=== PATIENT | female | born 1935 | race Caucasian/White ===

== ENCOUNTER → 2023-06-28 14:55 | Outpatient (REF) | payer OTHER, SELFPAY | LOC: RCS 14:55 | PROVIDERS: ATTENDING PHYSICIAN Internal Medicine Cardiovascular Disease; FAMILY PHYSICIAN Family Medicine | DX: R00.2 Palpitations (principal) | CPT/HCPCS: 93306 ==

== ENCOUNTER → 2023-07-18 12:00 | Outpatient (REF) | payer OTHER, SELFPAY ==
[2023-07-18 13:13] LABS: % Basophils 0.3 % (0-2); % Eosinophils 1.6 % (0-6); % Immature Granulocytes 0.5 % (0-0.5); % Lymphocytes 22.1 % (20.5-51.1); % Monocytes 6.7 % (1.7-9.3); % Neutrophils 68.8 % (42.2-75.2); Absolute Eosinophils 0.1 10^3/uL (0-0.7); Absolute Lymphocytes 1.4 10^3/uL (1.2-3.4); Absolute Monocytes 0.4 10^3/uL (0.1-0.6); Absolute Neutrophils 4.3 10^3/uL (1.4-6.5); Hematocrit 31.8 % (37.0-47.0); Mean Corp Hgb Conc. 34.6 g/dL (33.0-37.0); Mean Corpuscular Hgb 31.3 pg (27.0-31.0); Mean Corpuscular Volume 90.6 fL (81.0-99.0); Mean Platelet Volume 9.6 fL (7.4-10.4); Nucleated Red Blood Cells % 0 %; Platelet Count 215 10^3/uL (130-400); Red Blood Cell Count 3.51 10^6/uL (4.20-5.40); Red Cell Dist. Width 13.5 % (11.5-14.5); White Blood Cell Count 6.3 10^3/uL (4.8-10.8)
[2023-07-18 13:53] LABS: ALT (SGPT) 14 U/L (0-35); AST (SGOT) 19 U/L (14-36); Alkaline Phosphatase 86 U/L (38-126); Blood Urea Nitrogen 22 mg/dl (7-17); Calcium 9.5 mg/dl (8.4-10.2); Carbon Dioxide 27 mmol/L (22-30); Chloride 104 mmol/L (98-107); Glucose 88 mg/dl (70-99); Potassium 4.2 mmol/L (3.5-5.1); Sodium 139 mmol/L (135-145); Total Bilirubin 0.4 mg/dl (0.2-1.3); Total Protein 6.4 g/dl (6.3-8.2); eGFR > 60.00
[2023-07-20 15:16] LABS: CA 27-29 32.2 U/mL (<=39.0)
== END ==
LOC: RAD 12:00
PROVIDERS: ATTENDING PHYSICIAN Internal Medicine Hematology & Oncology; FAMILY PHYSICIAN Family Medicine; REFERRING PHYSICIAN Nurse Practitioner Adult Health
DX: C78.01 Secondary malignant neoplasm of right lung (principal); C78.1 Secondary malignant neoplasm of mediastinum; C50.111 Malignant neoplasm of central portion of right female breast
CPT/HCPCS: 36415; 71260; 80053; 85025; 86300; Q9967

== ENCOUNTER 2023-09-13 10:50 | Inpatient (IN) | payer OTHER, SELFPAY ==
[2023-09-12 20:16] VITALS: BP 184/56; BMI 25.6
--- NOTE | 2023-09-12 20:26 | ED.GENMED ---
History of Present Illness
General
Chief Complaint: Fall
Source: patient
Exam Limitations: none
Time Seen by Provider: 09/12/23 20:11
History of Present Illness
History of Present Illness:
This is a 87 year old Female that comes in by ambulance with c/o fall. States that she [place] when she tripped and fell. States that she landed on her left hip. Denies hitting her head or any LOC. Denies
any Thinners. States that she was a little lightheaded after the fall. Denies any fever, chills, chest pain, SOB, abd pain, nausea, vomiting, diarrhea, headache, urinary burning.
Past History
Past History
ED Past Medical History: Cancer (Breast cancer right with mets to Lungs), Hypercholesterolemia, Psychiatric (Depression, ) and Other ( hepatitis B, Lyme disease, Right hip arthritis, )
ED Past Surgical History: Appendectomy, Orthopedic (recent right distal femur fracture with ORIF, right and left total knee replacement) and Other (Right mastectomy)
Social History
Tobacco: Former smoker
Alcohol: Occasional
Personal:
Living: alone
Family History
Family History: Other (Mother with CHF)
Review of Systems
Review of Systems
All Other Systems: ROS reviewed and negative except as documented in HPI and ROS
Constitutional: Reports no symptoms; Denies fever or chills
EENT: Reports no symptoms
Respiratory: Reports no symptoms; Denies cough or trouble breathing
Cardiac: Reports no symptoms; Denies chest pain
ABD/GI: Reports no symptoms; Denies abdominal pain, nausea, vomiting or diarrhea
: Reports no symptoms; Denies dysuria, frequency or urgency
Musculoskeletal: Reports joint pain (Left hip pain)
Skin: Reports no symptoms
Neurological: Reports other (Lightheaded); Denies dizzy or headache
Psychiatric: Reports no symptoms
Phy Exam
General Physical Exam
General Presentation: well appearing and no apparent distress
General age: appears stated age
General Skin: warm and dry
General Habitus: elderly
General Mental: alert
General Hydration: appears well hydrated
ENT Exam
ENT Exam: TM's normal, pharynx normal and neck supple
Eye Exam
Eye Exam: EOMI
Cardiovascular Exam
Cardiovascular Exam: regular rate/rhythm, no edema and normal peripheral pulses
Pulmonary Exam
Pulmonary Exam: lungs clear, no respiratory distress, no rales, chest non tender, no crackles, no rhonchi, no wheezing and no cough
Gastrointestinal Exam
Gastrointestinal Exam: normal bowel sounds, non tender, soft, no organomegaly, no pulsatile mass and non distended
Musculoskeletal Exam
Musculoskeletal Exam: other (Left hip/pelvic tenderness with palpation. Patient able to flex knee without pain. )
Skin Exam
Skin Exam: normal color, warm/dry, no rash and no petechia
Psychiatric Exam
Psychiatric Exam: normal mood/affect
Course
Orders/Labs/Results
Orders:
Orders
09/12/23 20:24
Hip, Left 2-3 Views [CR Hip - LT w/wo Pel 2-3 Vw*] Urgent
Comment:
Reason For Exam: Fall, left hip pain,
Include a pelvis x-ray?: Yes
09/12/23 20:48
Complete Blood Count/With Diff Urgent
Comprehensive Metabolic Panel Urgent
09/12/23 21:15
Ketorolac [Toradol] 30 mg IV NOW STA
09/12/23 22:38
CT Pelvis W/o Iv Contrast Urgent
Comment:
Reason For Exam: fall, Left hip pain
09/12/23 23:21
Acetaminophen 1000MG/100Ml [Ofirmev] 1,000 mg in 100 ml IV ONCE
Acetaminophen IV Indication:: ED Narcotic Naive Pt-ONCE
Abnormal Lab Results
09/12/23
20:48
RBC 3.41 L 10^6/uL
(4.20-5.40)
Hgb 10.6 L g/dL
(12.0-16.0)
Hct 30.7 L %
(37.0-47.0)
MCH 31.1 H pg
(27.0-31.0)
Abs Immat Gran (auto) 0.1 H 10^3/uL
(0-0.05)
Immature Gran % 1.1 H %
(0-0.5)
BUN 27 H mg/dl
(7-17)
09/12/23 20:48
09/12/23 20:48
H/H mildly low. Dehydration.
Vital Signs
Initial and Last Documented VS:
Initial Vital Signs
Temp Pulse Resp BP Pulse Ox
98.2 F 71 18 184/56 99
09/12/23 20:16 09/12/23 20:16 09/12/23 20:16 09/12/23 20:16 09/12/23 20:16
Last Documented Vital Signs
Temp Pulse Resp BP Pulse Ox
98.2 F 66 21 184/56 98
09/12/23 20:16 09/12/23 20:30 09/12/23 20:30 09/12/23 20:16 09/12/23 20:16
MDM/Problems Addressed
Differential Diagnosis Includes:
Pelvic fracture, Left hip fracture
MDM/Problems Addressed:
This is a 87 year old female that was outside watering her plants when she tripped and fell hitting the left hip. States that she was able to stand with EMS.
Will check labs and get X-ray of the hip and pelvis.
Back into see patient. Explained that her X-ray is questionable for a pelvic fracture. Will get CT scan.
Back into see patient. Explained that she does have a pelvic Fracture. Will admit. Hospitalist notified.
Chronic conditions affecting care:
NA
Acute Exacerbation and/or Progression of Chronic Illness:
NA
*Radiology
Radiology exam reviewed: preliminary read by ED provider (Hip/Pelvic= Questionable pelvic fracture. ), radiology read reviewed (Left hip-Vertical fracture through the lateral aspect of the left inferior pubic ramus. No other fractures is identified
radiographically. CT- mildly displaced fracture of the left inferior pubic ramus and left superior pubic ramus near the pubic symphysis. Additional minimally displaced fracture) and other (CT cont- of the left sacrum and possibly right sacrum. )
*Pulse Oximetry
Patient hypoxic: no
*EKG
Interpreted by ED Provider?: NA
Rate: EKG- N/A
*Patron Attendant Interpretation
Rate: normal
Heart Rate: 69
Rhythm: sinus
*Critical Care Note
Total Time (30-74mins, 75-104mins- exclusive of procedures): Not Applicable
ED Attending Note
-
Portions of this chart may have been created with voice recognition software.� Occasional wrong word or��sound alike� substitutions may have occurred due to the inherent limitations of voice recognition software.
Discharge Plan
Departure
Patient Disposition: Admit
Date of Disposition: 09/12/23
Time of Disposition: 23:41
Admit to: Med/Surg
Presentation/result/management discussed w/ accepting MD/DO: Hospitalist
Patient with high blood pressure during this ER visit?: Yes
Condition: Good
Covid-19: Not Applicable
Discharge Problem:
Closed pelvic fracture
Prescriptions:
No Action
multivitamin 1 EACH tablet
1 ea PO DAILY
acetaminophen 325 MG tablet
325 mg PO PRN PRN (Reason: pain)
simvastatin 10 MG tablet
10 mg PO DAILY
aspirin [Adult Aspirin Regimen] 81 MG tablet,delayed release (DR/EC)
81 mg PO DAILY
docusate sodium 100 MG capsule
100 mg PO DAILY
cholecalciferol (vitamin D3) [Vitamin D3] 1,000 UNIT capsule
1,000 unit PO DAILY
valsartan 40 MG tablet
40 mg PO DAILY
oxycodone [OxyContin] 10 MG tablet,oral only,ext.rel.12 hr
10 mg PO HSPRN PRN (Reason: pain)
Referrals:
Dereck Stein MD [Family Provider] -
Interventions
Interventions:
*Risk Screen - Suicide Last Done: 09/12/23 20:18
*General Assessment Last Done: 09/12/23 20:18
*Neglect/Abuse Screening Last Done: 09/12/23 20:18
ED- Fall Risk Assessment Last Done: 09/12/23 20:18
ED-Musculoskeletal Assessment Last Done: 09/12/23 20:19
ED- Neurological Assessment Last Done: 09/12/23 20:18
ED-Skin Assessment Last Done: 09/12/23 20:19
Discharge Date and Time
Print Language: GERMAN
[2023-09-12 20:57] LABS: % Basophils 0.2 % (0-2); % Eosinophils 1.8 % (0-6); % Immature Granulocytes 1.1 % (0-0.5); % Lymphocytes 23.4 % (20.5-51.1); % Monocytes 7.5 % (1.7-9.3); Absolute Eosinophils 0.1 10^3/uL (0-0.7); Absolute Immature Granulocytes 0.1 10^3/uL (0-0.05); Absolute Lymphocytes 1.3 10^3/uL (1.2-3.4); Absolute Monocytes 0.4 10^3/uL (0.1-0.6); Absolute Neutrophils 3.6 10^3/uL (1.4-6.5); Hematocrit 30.7 % (37.0-47.0); Hemoglobin 10.6 g/dL (12.0-16.0); Mean Corp Hgb Conc. 34.5 g/dL (33.0-37.0); Mean Corpuscular Hgb 31.1 pg (27.0-31.0); Mean Platelet Volume 9.9 fL (7.4-10.4); Nucleated Red Blood Cells % 0 %; Platelet Count 199 10^3/uL (130-400); Red Blood Cell Count 3.41 10^6/uL (4.20-5.40); Red Cell Dist. Width 12.8 % (11.5-14.5); White Blood Cell Count 5.5 10^3/uL (4.8-10.8)
[2023-09-12] MEDS: TORADOL 30 MG IV (21:24)
[2023-09-12 22:08] LABS: ALT (SGPT) 20 U/L (0-35); AST (SGOT) 22 U/L (14-36); Albumin 4.2 g/dl (3.5-5.0); Alkaline Phosphatase 84 U/L (38-126); Blood Urea Nitrogen 27 mg/dl (7-17); Calcium 9.6 mg/dl (8.4-10.2); Carbon Dioxide 26 mmol/L (22-30); Chloride 107 mmol/L (98-107); Estimated Creatinine Clearance 48 ml/min; Glucose 95 mg/dl (70-99); Potassium 4.5 mmol/L (3.5-5.1); Sodium 137 mmol/L (135-145); Total Bilirubin 0.3 mg/dl (0.2-1.3); Total Protein 6.4 g/dl (6.3-8.2); eGFR > 60.00
[2023-09-12] MEDS: OFIRMEV 100 IV (23:32)
[2023-09-13] VITALS (10 sets, daily range): BP systolic 103–164; BP diastolic 58–89; PULSE 58–72; O2SAT 97; BMI 25.8
--- NOTE | 2023-09-13 03:26 | HPS.HSE ---
Family Physician
-
Family Physician: Dereck Stein
Chief Complaint
-
Pain s/p Fall
History of Present Illness
Patient is an 87y F with PMH significant for metastatic breast cancer and hypertension who presents to ED complaining of pain in both legs s/p fall at home. 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
cane. Today she was watering plants at her home when she fell. Patient denies dizziness, LOC, head injury, etc; however, she is also not capable of describing the fall or events leading up to it with any clarity.
Patient noted pain in both hips immediately after the fall and presented to the ED for further evaluation.
Imaging in the ED shows L pelvic fractures and L / possibly R sacral fractures.
Patient continues to have pain in the ED despite Tylenol and Toradol.
Medical History
Past Medical History
Past Medical History: Reports Other
Additional Past Medical History:
Metastatic Breast Cancer
Hypertension
DJD
Past Surgical History: Reports Other
Additional Past Surgical History:
Right Mastectomy
Tubal Ligation
Appendectomy
Hemorrhoidectomy
Right Distal Femur ORIF
Social History
Tobacco: Non-smoker
Alcohol: Occasional (Rare)
Drug: None
Living: Alone
Family History
Family History: Not pertinent
Allergies / Home Medications
Allergies reflects when Allergies were last updated in [employer].
Home Medications with original date entered in [employer]
Allergy/Medication List:
Allergies
Allergy/AdvReac Type Severity Reaction Status Date / Time
codeine Allergy hyperactive Verified 09/12/23 21:34
- many
years ago
hydromorphone Allergy Unknown Verified 09/12/23 21:34
Penicillins Allergy Unknown Verified 09/12/23 21:34
tetracycline Allergy Unknown Verified 09/12/23 21:34
tramadol Allergy Unknown Verified 09/12/23 21:34
Home Medications
simvastatin 10 mg tablet 10 mg PO DAILY 09/19/20
valsartan 40 mg tablet 40 mg PO DAILY 09/19/20
acetaminophen 650 mg tablet,extended release 1,300 mg PO Q8H PRN pain 09/13/23
metoprolol succinate 25 mg tablet,extended release 24 hr 25 mg PO DAILY 09/13/23
Review of Systems
-
History Source: Patient
A 12 point ROS was completed and negative except as noted: Yes
Constitutional: Denies Fever or Chills
Respiratory: Denies Cough or Trouble Breathing
Cardiac: Denies Chest Pain or Palpitations
Abdomen/GI: Denies Abdominal Pain, Nausea, Vomiting or Diarrhea
: Denies Dysuria, Frequency or Flank Pain
Musculoskeletal: Reports Joint Pain; Denies Edema
Neurological: Denies Dizzy, Headache, Weakness or Numbness
Psych: Denies Depression or Anxiety
Physical Exam
Vital Signs
Vital Signs
Temp Pulse Resp BP Pulse Ox
98.2 F 66 21 184/56 98
09/12/23 20:16 09/12/23 20:30 09/12/23 20:30 09/12/23 20:16 09/12/23 20:16
Physical Exam
General: Other (87y F in mild distress due to pain.)
HEENT: Moist mucous membranes and PERRLA
Respiratory: Clear; No Wheezes, Rales or Rhonchi
Cardiac: S1/S2 and Regular Rhythm; No Murmur
GI: Soft, Non Tender, Non Distended and Normal Bowel Sounds
Musculoskeletal: No Clubbing, No Cyanosis, No Edema and Other (Tenderness over pubis. Pain with movement of b/l legs.)
Neuro: AO x 3 and Nonfocal/grossly intact
Laboratory Results
-
09/12/23 20:48
09/12/23 20:48
Laboratory Results
Total Bilirubin 0.3 mg/dl (0.2-1.3) 09/12/23 20:48
AST 22 U/L (14-36) 09/12/23 20:48
ALT 20 U/L (0-35) 09/12/23 20:48
Alkaline Phosphatase 84 U/L (38-126) 09/12/23 20:48
Impression/Plan
-
A/P: Patient is an 87y F with PMH significant for hypertension and metastatic breast cancer who presents to ED complaining of pain s/p fall at home.
Pelvic Fractures
- Observe overnight for further evaluation and treatment.
- Efforts at pain control - somewhat limited by stated allergies.
- PT / OT evals in the AM.
- Probable SNF at discharge as patient lives alone.
Fall at Home
- Likely simple fall; however, patient unable to accurately describe event.
- Cannot rule out syncopal occurrence.
- Monitor on tele overnight for any arrhythmia.
- PT / OT in AM as stated.
Benign Hypertension
- Stable. Continue outpatient meds with holding parameters.
Metastatic Breast Cancer
- Follows with Dr. Cardona.
- On hormonal treatment earlier this year - not currently on any active therapies.
- Follow-up with Oncology as an outpatient as planned.
Chronic Normocytic Anemia
- Stable. Hgb at / near known baseline.
- Follow for any changes.
DVT Prophylaxis: SCDs
Code Status: Full
[2023-09-13] MEDS: MORPHINE SULFATE 1 MG IV (03:46)
[2023-09-13] MEDS: TORADOL 15 MG IV ×3 (04:55→20:35)
[2023-09-13 07:21] LABS: Hematocrit 28.5 % (37.0-47.0); Mean Corp Hgb Conc. 35.1 g/dL (33.0-37.0); Mean Corpuscular Hgb 31.3 pg (27.0-31.0); Mean Corpuscular Volume 89.1 fL (81.0-99.0); Mean Platelet Volume 10.2 fL (7.4-10.4); Platelet Count 155 10^3/uL (130-400); Red Cell Dist. Width 12.6 % (11.5-14.5); White Blood Cell Count 6.9 10^3/uL (4.8-10.8)
[2023-09-13 07:58] LABS: Blood Urea Nitrogen 27 mg/dl (7-17); Calcium 9.3 mg/dl (8.4-10.2); Carbon Dioxide 25 mmol/L (22-30); Chloride 108 mmol/L (98-107); Estimated Creatinine Clearance 48 ml/min; Glucose 99 mg/dl (70-99); Potassium 4.4 mmol/L (3.5-5.1); Sodium 138 mmol/L (135-145); eGFR > 60.00
--- NOTE | 2023-09-13 08:00 | PTCARENOTE ---
Pt on telemetry, ST elevation noticed. Dr. De La Cruz notified. EKG ordered and completed. Pt resting comfortably, care ongoing.
[2023-09-13] MEDS: TYLENOL 1000 MG PO ×3 (08:13→22:19)
[2023-09-13] MEDS: LIPITOR 10 MG PO (08:13)
[2023-09-13] MEDS: DIOVAN 40 MG PO (08:14)
[2023-09-13] MEDS: MORPHINE SULFATE 2 MG IV (08:14)
[2023-09-13] MEDS: TOPROL XL 25 MG PO (08:14)
--- NOTE | 2023-09-13 10:50 | W.PN.UPDATE ---
Update Note
Progress Note Update
Seen and examined independent of overnight physician. Nonbillable note.
States some mild pain. States avoids taking narcotics. Lives alone. Awaiting for PT eval.
General: Other (87y F in mild distress due to pain.)
HEENT: Moist mucous membranes and PERRLA
Respiratory: Clear; No Wheezes, Rales or Rhonchi
Cardiac: S1/S2 and Regular Rhythm; No Murmur
GI: Soft, Non Tender, Non Distended and Normal Bowel Sounds
Musculoskeletal: No Clubbing, No Cyanosis, No Edema and Other (Tenderness over pubis. Pain with movement of b/l legs.)
Neuro: AO x 3 and Nonfocal/grossly intact
A/P: Patient is an 87y F with PMH significant for hypertension and metastatic breast cancer who presents to ED complaining of pain s/p fall at home.
Pelvic Fractures
Intramuscular hematoma likely 2/2 severe fractures
- Efforts at pain control - somewhat limited by stated allergies.
- PT / OT evals
- Probable SNF at discharge as patient lives alone.
Fall at Home
- Likely simple fall; however, patient unable to accurately describe event.
- Cannot rule out syncopal occurrence.
- Monitor on tele overnight for any arrhythmia.
- PT / OT in AM as stated.
Benign Hypertension
- Stable. Continue outpatient meds with holding parameters.
Metastatic Breast Cancer
- Follows with Dr. Cardona.
- On hormonal treatment earlier this year - not currently on any active therapies.
- Follow-up with Oncology as an outpatient as planned.
Chronic Normocytic Anemia
- Stable. Hgb at / near known baseline.
- Follow for any changes.
DVT Prophylaxis: SCDs
Code Status: Full
--- NOTE | 2023-09-13 11:26 | CM ---
Initial assessment completed with patient who lives alone in a one story home with 1 step to enter. Patient has a SPC which she uses and grab bars at the shower and tub, no in-home services. RECORDS ANALYST patient was independent and drives. No history of
Psychiatric hospitalizations. Pharmacy is [facility] on [address] in [place] and PCP is Dr. Dereck Stein. Awaiting therapy evaluation. Patient would like to discharge to [facility].
--- NOTE | 2023-09-13 15:40 | CM ---
Therapy recommended for STR. Received preferences from patient. First is [facility]. Referrals forwarded and left message for admissions at [facility].
[2023-09-13] MEDS: SENOKOT 17.2 MG PO (22:19)
[2023-09-14] MEDS: MORPHINE SULFATE 2 MG IV (02:42)
[2023-09-14 02:50] VITALS: BP 149/98
[2023-09-14 07:06] VITALS: BP 171/86
[2023-09-14] MEDS: DIOVAN 40 MG PO (07:48)
[2023-09-14] MEDS: TOPROL XL 25 MG PO (07:48)
[2023-09-14] MEDS: LIPITOR 10 MG PO (07:48)
[2023-09-14] MEDS: TYLENOL 1000 MG PO (07:48)
[2023-09-14] MEDS: TORADOL 15 MG IV (08:10)
[2023-09-14 11:00] VITALS: BP 141/62; BP 142/59; BP 159/74; PULSE 60; PULSE 63; PULSE 66
--- NOTE | 2023-09-14 11:02 | W.PN.HOSP.TC ---
Today's Communication/Plan
-
DC TO SNF
Assessment / Plan
Assessment / Plan
General: Other (87y F in mild distress due to pain.)
HEENT: Moist mucous membranes
Respiratory: Clear; No Wheezes, Rales or Rhonchi
Cardiac: S1/S2 and Regular Rhythm; No Murmur
GI: Soft, Non Tender, Non Distended and Normal Bowel Sounds
Musculoskeletal: No Clubbing, No Cyanosis, No Edema and Other (Tenderness over pubis. Pain with movement of b/l legs.)
Neuro: AO x 3 and Nonfocal/grossly intact
A/P: Patient is an 87y F with PMH significant for hypertension and metastatic breast cancer who presents to ED complaining of pain s/p fall at home.
Pelvic Fractures
Intramuscular hematoma likely 2/2 severe fractures
- Efforts at pain control - somewhat limited by stated allergies. Does not want to take any meds. States will take Tylenol.
- PT / OT evals -SNF.
- Discussed case with Dr. David Stuart on phonograph mechanic on 09/13/2023 recommended weightbearing as tolerated.
-Recommended patient to follow-up outpatient with orthopedic and stated she will follow-up with Dr. Isaiah Mcrae
Fall at Home
- Likely simple fall; however, patient unable to accurately describe event.
- Doubt syncopal event. Blood pressure stable.
Benign Hypertension
- Stable. Continue outpatient meds with holding parameters.
Metastatic Breast Cancer
- Follows with Dr. Cardona.
- On hormonal treatment earlier this year - not currently on any active therapies.
- Follow-up with Oncology as an outpatient as planned.
Chronic Normocytic Anemia
- Stable. Hgb at / near known baseline.
- Follow for any changes.
DVT Prophylaxis: SCDs
Code Status: Full
PT/OT SNF. [facility] today.
More than 30 minutes spent in discharge including
Final examination of the patient
Summarizing hospital stay
Instructions for continuing care to all relevant caregivers
Preparation of discharge records, prescriptions, and referral forms
Total time spent (in minutes): 52
Anticipated Discharge: Today
Subjective/Interval History
-
Date of Service: September 14, 2023
Remains with intermittent pain
Wants to go to [facility]
Objective Data
-
Vital Signs:
Vital Signs
Temp Pulse Resp BP Pulse Ox
98.2 F 70 16 168/57 98
09/14/23 07:06 09/14/23 07:48 09/14/23 07:06 09/14/23 07:48 09/14/23 07:06
I&O
09/13/23 09/14/23 09/15/23
06:59 06:59 06:59
Intake Total 1560 / 1560
Output Total 350 / 350
Balance 1210 / 1210
--- NOTE | 2023-09-14 11:07 | W.DCSUMMARY ---
Discharge Summary
Discharge Data
Date of Admission: 09/13/23
Date of Discharge: 09/14/23
-
Pending Results: No
Hospital Course
87 female past medical history of hypertension, hyperlipidemia, metastatic breast cancer presenting after mechanical fall at home. Patient underwent x-rays and CT. CT pelvis showed Acute, nondisplaced fractures of the left inferior pubic ramus, the
left superior pubic ramus/parasymphyseal pubic body, and the left sacral ala. Patient was started on standing Tylenol. Pain medications were provided however patient was hesitant to take it. Patient was eval by physical and Occupational Therapy.
Plan will be to discharge to shelter facility. Patient case was also discussed with on-call orthopedic Dr. David Stuart who recommended weightbearing as tolerated. Patient stated she will follow-up with her own primary orthopedic doctor
Dr. Isaiah Ernandez upon discharge.
Discharge Plan
-
Patient Disposition: Snf/SNF
Discharge Diagnosis/Procedures: Pelvis fracture
Condition: Fair
Diet: As tolerated
Activity: With assistance and As tolerated
Driving Restrictions: Not until seen by your Dr
Referrals:
Dereck Stein MD [Family Provider] - in less than 1 week
Awais Colon MD [Active] - in one to two weeks
Prescriptions:
Continued
simvastatin 10 MG tablet
10 mg PO DAILY
valsartan 40 MG tablet
40 mg PO DAILY
metoprolol succinate 25 mg Tablet Extended Release 24 Hr
25 mg PO DAILY
Changed
acetaminophen 650 mg Tablet Extended Release
1,300 mg PO Q8H Qty: 0 0RF
Rx Instructions:
pt reports taking 2 extra strength tylenol at a time for pain at home, states she takes this all the time
Discharge Orders:
Discharge Patient (As Directed); Ordered 09/14/23
Ordered By: Merritt De La Cruz
Discharge Date and Time
Discharge Date/Time: 09/14/23 13:03
Print Language: MAURITIAN
--- NOTE | 2023-09-14 11:46 | CM ---
Patient has been medically cleared for discharge to [facility] for group home and rehab services. Transport scheduled for 1:00PM. Insurance auth required and approved via [facility] at [place] [address]. Auth # [id number], covered from 09/14/23
through to and including 09/19/23. Next review date is 09/19/23. Call concurrent reviews to [phone]. Patient, , [place] admissions, team notified.
NURSE TO NURSE REPORT # [phone]
FAX # [phone]
--- NOTE | 2023-09-14 11:57 | CM ---
Patient has been medically cleared for discharge to [facility] for [facility] and rehab services. Transport being scheduled. Insurance auth required and approved via [employer] at [place] [address]. Auth # [id number], covered from 09/14/23 through to
and including 09/19/23. Next review date is 09/19/23. Call concurrent reviews to [phone]. Patient, [place] admissions, team notified.
NURSE TO NURSE REPORT # [phone]
FAX # [phone]
[2023-09-14 12:14] VITALS: BP 151/71
== END 2023-09-14 13:03 | DRG 536 ==
LOC: 2 SOUTH 10:50
PROVIDERS: Clinical Nurse Specialist Family Health; ADMITTING PHYSICIAN Hospitalist; ATTENDING PHYSICIAN Hospitalist; EMERGENCY PHYSICIAN Emergency Medicine; FAMILY PHYSICIAN Family Medicine
DX: S32.592A Other specified fracture of left pubis, initial encounter for closed fracture (principal); W01.0XXA Fall on same level from slipping, tripping and stumbling without subsequent striking against object, initial encounter; Y93.H2 Activity, gardening and landscaping; Y92.007 Garden or yard of unspecified non-institutional (private) residence as the place of occurrence of the external cause; E78.00 Pure hypercholesterolemia, unspecified; D64.9 Anemia, unspecified; S70.02XA Contusion of left hip, initial encounter; I10 Essential (primary) hypertension; F32.A Depression, unspecified; M16.11 Unilateral primary osteoarthritis, right hip; Z96.653 Presence of artificial knee joint, bilateral; Z90.11 Acquired absence of right breast and nipple; Z85.3 Personal history of malignant neoplasm of breast; Z85.118 Personal history of other malignant neoplasm of bronchus and lung; Z86.19 Personal history of other infectious and parasitic diseases; Z87.891 Personal history of nicotine dependence; Z82.49 Family history of ischemic heart disease and other diseases of the circulatory system; Z88.1 Allergy status to other antibiotic agents; Z88.5 Allergy status to narcotic agent; Z88.0 Allergy status to penicillin
CPT/HCPCS: 72192; 73502; 80048; 80053; 85025; 85027; 93005; 96374; 96375; 97163; 97167; 99285

== ENCOUNTER → 2023-09-16 12:07 | Outpatient (REF) | payer OTHER, SELFPAY ==
[2023-09-16 13:11] LABS: % Basophils 0.4 % (0-2); % Eosinophils 4.8 % (0-6); % Immature Granulocytes 0.6 % (0-0.5); % Lymphocytes 19.3 % (20.5-51.1); % Monocytes 9.7 % (1.7-9.3); % Neutrophils 65.2 % (42.2-75.2); Absolute Eosinophils 0.3 10^3/uL (0-0.7); Absolute Monocytes 0.5 10^3/uL (0.1-0.6); Absolute Neutrophils 3.5 10^3/uL (1.4-6.5); Hematocrit 27.5 % (37.0-47.0); Hemoglobin 9.3 g/dL (12.0-16.0); Mean Corp Hgb Conc. 33.8 g/dL (33.0-37.0); Mean Corpuscular Hgb 31.5 pg (27.0-31.0); Mean Corpuscular Volume 93.2 fL (81.0-99.0); Mean Platelet Volume 11.1 fL (7.4-10.4); Nucleated Red Blood Cells % 0 %; Platelet Count 155 10^3/uL (130-400); Red Blood Cell Count 2.95 10^6/uL (4.20-5.40); Red Cell Dist. Width 12.7 % (11.5-14.5); White Blood Cell Count 5.4 10^3/uL (4.8-10.8)
[2023-09-16 13:35] LABS: Blood Urea Nitrogen 24 mg/dl (7-17); Calcium 8.8 mg/dl (8.4-10.2); Carbon Dioxide 26 mmol/L (22-30); Chloride 105 mmol/L (98-107); Glucose 90 mg/dl (70-99); Potassium 4.7 mmol/L (3.5-5.1); Sodium 134 mmol/L (135-145); eGFR > 60.00
== END ==
LOC: OLABP 12:07
PROVIDERS: ATTENDING PHYSICIAN Family Medicine
DX: R26.2 Difficulty in walking, not elsewhere classified (principal); I10 Essential (primary) hypertension; D64.9 Anemia, unspecified; C50.919 Malignant neoplasm of unspecified site of unspecified female breast; S32.9XXD Fracture of unspecified parts of lumbosacral spine and pelvis, subsequent encounter for fracture with routine healing; W19.XXXD Unspecified fall, subsequent encounter
CPT/HCPCS: 36415; 80048; 85025

== ENCOUNTER → 2024-04-30 16:20 | Outpatient (REF) | payer OTHER, SELFPAY | LOC: HWRAD 16:20 | PROVIDERS: ATTENDING PHYSICIAN Family Medicine | DX: M25.512 Pain in left shoulder (principal) | CPT/HCPCS: 73030 ==

== ENCOUNTER → 2024-05-03 12:34 | Outpatient (REF) | payer OTHER, SELFPAY ==
[2024-05-03 14:03] LABS: % Basophils 0.5 % (0-2); % Eosinophils 3.7 % (0-6); % Immature Granulocytes 0.3 % (0-0.5); % Lymphocytes 31.7 % (20.5-51.1); % Monocytes 9.1 % (1.7-9.3); % Neutrophils 54.7 % (42.2-75.2); Absolute Eosinophils 0.2 10^3/uL (0-0.7); Absolute Monocytes 0.6 10^3/uL (0.1-0.6); Absolute Neutrophils 3.4 10^3/uL (1.4-6.5); Hematocrit 33.3 % (37.0-47.0); Hemoglobin 11.2 g/dL (12.0-16.0); Mean Corp Hgb Conc. 33.6 g/dL (33.0-37.0); Mean Corpuscular Hgb 30.8 pg (27.0-31.0); Mean Corpuscular Volume 91.5 fL (81.0-99.0); Mean Platelet Volume 10.1 fL (7.4-10.4); Nucleated Red Blood Cells % 0 %; Platelet Count 281 10^3/uL (130-400); Red Blood Cell Count 3.64 10^6/uL (4.20-5.40); Red Cell Dist. Width 13.5 % (11.5-14.5); White Blood Cell Count 6.2 10^3/uL (4.8-10.8)
[2024-05-03 14:56] LABS: ALT (SGPT) 25 U/L (0-35); AST (SGOT) 23 U/L (14-36); Albumin 4.6 g/dl (3.5-5.0); Alkaline Phosphatase 93 U/L (38-126); Blood Urea Nitrogen 24 mg/dl (7-17); Calcium 9.8 mg/dl (8.4-10.2); Carbon Dioxide 27 mmol/L (22-30); Chloride 101 mmol/L (98-107); Glucose 89 mg/dl (70-99); Potassium 4.6 mmol/L (3.5-5.1); Sodium 137 mmol/L (135-145); Total Bilirubin 0.5 mg/dl (0.2-1.3); eGFR > 60.00
[2024-05-05 22:34] LABS: CA 27-29 33.2 U/mL (<=39.0)
== END ==
LOC: RAD 12:34
PROVIDERS: ATTENDING PHYSICIAN Internal Medicine Hematology & Oncology; FAMILY PHYSICIAN Family Medicine
DX: C50.111 Malignant neoplasm of central portion of right female breast (principal); C78.01 Secondary malignant neoplasm of right lung; C78.1 Secondary malignant neoplasm of mediastinum
CPT/HCPCS: 36415; 71260; 80053; 85025; 86300; Q9967